=== PATIENT | male | born 1955 | race American Indian/Alaskan Native ===

== ENCOUNTER 2017-09-16 23:13 | Emergency (ER) | payer OTHER ==
[2017-09-17] MEDS ORDERED: TYLENOL ONE (00:32)
[2017-09-17] MEDS ORDERED: TYLENOL PO ONE (00:33)
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
[2017-09-17 04:12] VITALS: BP 148/88
== END 2017-09-17 04:36 | disposition home or self-care (01) ==
LOC: ED 23:13
DX: M54.2 Cervicalgia (principal); M54.5 Low back pain; F17.200 Nicotine dependence, unspecified, uncomplicated; V49.59XA Passenger injured in collision with other motor vehicles in traffic accident, initial encounter; Y93.89 Activity, other specified; Y92.89 Other specified places as the place of occurrence of the external cause; Y99.8 Other external cause status
CPT/HCPCS: 99282